=== PATIENT | female | born 1960 | race Caucasian/White ===

== ENCOUNTER 2017-07-08 06:00 | Day surgery (SDC) | payer BC ==
[2017-07-03 11:41] VITALS: BMI 28.3
[2017-07-08] MEDS ORDERED: PROPOFOL 20 ML ONE ×2 (07:17)
[2017-07-08] MEDS ORDERED: SUCCINYLCHOLINE CHLORIDE 200 MG/10 ML VIAL ONE (07:17)
[2017-07-08] MEDS ORDERED: MIDAZOLAM HCL 2 MG/2 ML SINGLE DOSE VIAL ONE (07:17)
[2017-07-08] MEDS ORDERED: KETOROLAC TROMETHAMINE 30 MG/1 ML VIAL ONE (07:18)
[2017-07-08] MEDS ORDERED: LIDOCAINE HCL 2% JELLY (5 ML/TUBE) ONE (07:18)
[2017-07-08] MEDS ORDERED: DEXAMETHASONE SOD PHOSPHATE 4 MG/1 ML VIAL ONE (07:18)
[2017-07-08] MEDS ORDERED: ONDANSETRON 4 MG/2 ML VIAL ONE (07:18)
[2017-07-08] MEDS ORDERED: ceFAZolin SODIUM 1 GM VIAL ONE (07:18)
[2017-07-08] MEDS ORDERED: BUPIVACAINE HCL/EPINEPHRINE/PF 30 ML VIAL IJ ONE (07:48)
[2017-07-08] MEDS ORDERED: BUPIVACAINE HCL/PF 2.5 MG/ML - 30 ML VIAL IJ ONE (07:49)
[2017-07-08] MEDS ORDERED: BUPIVACAINE HCL/PF 0.5% (5MG/ML) 10 ML VIAL ONE (07:49)
[2017-07-08] MEDS ORDERED: oxyCODONE HCL 5 MG TABLET PO PRN ×2 (08:05)
[2017-07-08] MEDS ORDERED: ONDANSETRON 4 MG/2 ML VIAL IVPUSH PRN (08:05)
[2017-07-08] MEDS ORDERED: PROMETHAZINE HCL 25 MG/1 ML VIAL IVPUSH PRN (08:05)
[2017-07-08] MEDS ORDERED: LACTATED RINGERS SOLUTION 1,000 ML IV SCH (08:15)
[2017-07-08] MEDS ORDERED: PROMETHAZINE HCL 25 MG/1 ML VIAL IVPB PRN (08:26)
[2017-07-08 08:41] VITALS: TEMP 97.7
[2017-07-08 09:32] VITALS: BP 120/70; PULSE 80
--- NOTE | 2017-07-08 09:48 | OP ---
DATE OF OPERATION: 07/08/2017 PREOPERATIVE DIAGNOSIS: Left carpal tunnel syndrome. POSTOPERATIVE DIAGNOSIS: Left carpal tunnel syndrome. OPERATIVE PROCEDURE: Left endoscopic carpal tunnel release. ANESTHESIA: General. COMPLICATIONS: None. ESTIMATED BLOOD LOSS: Minimal. INDICATION FOR PROCEDURE: The patient is a 56-year-old female with the above finding indicated for operative treatment. Risks, benefits, and alternatives were discussed with patient at length. Preoperative informed consent was obtained. DESCRIPTION OF PROCEDURE: After preoperative identification of the patient and correct operative site, patient was brought to the operating room and placed supine on the operating table with all bony prominences well padded, and general anesthesia was given. Left upper extremity was prepped and draped in the usual sterile fashion. Well-padded tourniquet was placed over the sterile prep, Esmarch bandage used to exsanguinate the left upper extremity. Tourniquet was inflated to 250 mmHg. Transverse incision made over the proximal wrist crease. Incision was taken sharply through the skin with blunt and sharp dissection through subcutaneous tissues. The antebrachial fascia was divided, and the carpal canal was entered with an elevator to free any soft tissue off the undersurface of transverse carpal ligament. The microendoscopic carpal tunnel release system was then used, using hamate finders/dilators to prepare the canal. The endoscope was then inserted to the distal edge of the transverse carpal ligament, which was positively identified. At all times throughout the procedure excellent visualization was achieved, and at no time was any soft tissue allowed to interpose between the transverse carpal ligament and the blade. The blade was deployed and the transverse carpal ligament was divided. Using a direct mini open approach, the remainder of the distal 4 cm of the antebrachial fascia was divided under direct visualization. That completed release of the median nerve at the wrist. Wound was irrigated with saline and repaired with 4-0 Monocryl suture. Steri-Strips, sterile dressings were applied. Patient was reversed from anesthesia, brought to the recovery room in stable condition. She tolerated the procedure well. MARIE SOLORZANO M.D. [id number]
== END 2017-07-08 09:34 | disposition home or self-care (01) ==
LOC: FASU 06:00
PROVIDERS: ATTEND Orthopaedic Surgery Hand Surgery
PROC: 01N54ZZ Release Median Nerve, Percutaneous Endoscopic Approach (ICD-10-PCS; principal; 2017-07-08 07:42)
DX: G56.02 Carpal tunnel syndrome, left upper limb (principal)
CPT/HCPCS: 94760